=== PATIENT | male | born 1985 | race Caucasian/White ===

== ENCOUNTER → 2016-10-01 | Outpatient (REF) ==
--- NOTE | 2016-10-01 16:09 | REP ---
RIGHT SHOULDER, THREE VIEWS: HISTORY: Degenerative joint disease. There is no acute fracture or dislocation. The joint spaces are normal in appearance. IMPRESSION: There is no acute fracture or dislocation. Signed by Migel Zhu MD 10/01/2016 04:12 P
--- NOTE | 2016-10-01 16:15 | REP ---
Clinical: Pain and disability. Technique: AP and frog lateral views of the right femur. Findings: The patient is noted to be status post open reduction and fixation with intramedullary robbin through the femoral shaft. The hip joint itself demonstrates relatively normal age appropriate appearance to the femoral head and acetabulum. Periosteal reaction involving the femoral shaft and calcified soft tissue matrix adjacent to the greater trochanter of the proximal femur at the right hip is consistent with post traumatic and postsurgical changes. Surrounding soft tissues are unremarkable. Impression: Post traumatic and postsurgical changes as noted above. The hip joint itself appears relatively normal for age. Signed by John Yates MD 10/01/2016 04:08 P
== END ==
LOC: M SMT 14:49
PROVIDERS: ATTEND Internal Medicine
DX: M96.89 Other intraoperative and postprocedural complications and disorders of the musculoskeletal system (principal); M25.511 Pain in right shoulder; M79.604 Pain in right leg